=== PATIENT | male | born 1940 | race Caucasian/White ===

== ENCOUNTER 2016-12-24 19:07 | Inpatient (IN) | payer MEDICARE ==
[2016-12-24] MEDS ORDERED: Ondansetron INJ* 2 MG/ML VIAL IV ONE (20:19)
[2016-12-24] MEDS ORDERED: NS 0.9% 1000 ML* 1,000 ML IV ONE (20:19)
[2016-12-24] MEDS ORDERED: Morphine INJ* 4 MG/ML 1 ML SYRINGE IV ONE (20:19)
[2016-12-24] MEDS ORDERED: Albuterol/Ipratropium NEB.SOL* Albuterol 2.5 MG/Ipratropium 0.5 MG 3 ML INH ONE (20:22)
[2016-12-24 20:41] LABS: Hematocrit 50 % (42-52); Hemoglobin 16.9 g/dl (14.0-18.0); Mean Corpuscular HGB Conc 34 g/dl (31-36); Mean Corpuscular Hemoglobin 32 pg (27-31); Mean Corpuscular Volume 95 fL (80-94); Mean Platelet Volume 8 um3 (7.4-10.4); Red Blood Count 5.29 10^6/ul (4.0-5.4); Red Cell Distribution Width 14 % (10.5-15); White Blood Count 13.1 10^3/ul (3.5-10.8)
[2016-12-24 20:43] LABS: Comments Flag Yes
[2016-12-24 20:44] LABS: Add Diff/Slide Review? Slide Review Added
[2016-12-24] MEDS ORDERED: Morphine INJ* 2 MG/ML 1 ML SYRINGE ONE (20:45)
[2016-12-24 20:58] LABS: Albumin 4.1 g/dL (3.2-5.2); BUN/Creatinine Ratio 18.3 (8-20); C Reactive Protein 19.42 mg/L (< 5.00); Calcium 9.5 mg/dL (8.6-10.3); EGFR African American 75.7 (>60); EGFR Non-African American 58.9 (>60); Globulin 3.3 g/dL (2-4); Total Bilirubin 0.8 mg/dL (0.2-1.0); Total Protein 7.4 g/dL (6.4-8.9)
--- NOTE | 2016-12-24 21:12 | RAD ---
Indication: Abdominal pain. Single frontal view of the chest performed at 2026 hours was reviewed. Comparison is made with previous exam dated August 04, 2015. No mediastinal shift is noted. Heart is of normal size and configuration. Lung randall appear clear. IMPRESSION: NO ACTIVE CARDIOPULMONARY DISEASE IS NOTED.
[2016-12-24] MEDS ORDERED: Iodixanol* (CONTRAST) 320 MG/ML 100 ML SDV IV ONE (21:25)
[2016-12-24 21:57] LABS: Troponin I 0.01 ng/mL (<0.04)
--- NOTE | 2016-12-24 22:00 | RAD ---
Indication: Left lower quadrant pain. Contrast: Administered 100.1 ml of VISAPAQUE 320 mg/ml CT of the abdomen and pelvis was performed after IV contrast administration. Coronal and sagittal reconstructed images were obtained. Coronal and sagittal reconstructed images were obtained. The lung bases demonstrate no pleural fluid, nodules or masses. Heart is of normal size without evidence of pericardial effusion. Liver is normal in size. No focal lesions or intrahepatic ductal dilatation is noted. The anterior medial segment of the left lobe of liver demonstrates focal hypodensity which may represent focal fat. The gallbladder demonstrates no calcified gallstones. No pericholecystic fluid or wall thickening is identified. The pancreas demonstrates no mass or pancreatic duct dilatation. The common duct is not dilated. The spleen is normal in size. The adrenal glands demonstrates left adrenal nodule measuring 12 mm. This is unchanged from previous exam. The kidneys demonstrate symmetric nephrograms. Cortical cysts are noted in the left kidney within the upper pole measuring up to 5.7 cm. Atherosclerotic aorta is noted. Ectasia of the abdominal aorta is noted which is unchanged from previous exam of August 25, 2016 measuring up to 3.1 cm. There are dilated loops of small bowel especially in the left upper quadrant. There appears to be a hernia in the left anterior abdominal wall lateral to the rectus muscle. There is a zone of transition and this anterior abdominal wall hernia appears to be the point of transition. The colon is filled with stool. CT of the pelvis demonstrates prostatectomy. Urinary bladder is unremarkable. Trace amount of free fluid is noted in the cul-de-sac. IMPRESSION: THERE IS SMALL BOWEL OBSTRUCTION WITH A LEFT ANTERIOR ABDOMINAL WALL HERNIA WHICH APPEARS TO BE LATERAL TO THE RECTUS MUSCLE. THIS APPEARS TO BE THE POINT OF TRANSITION OF THE SMALL BOWEL OBSTRUCTION. PATIENT IS STATUS POST PROSTATECTOMY. ADRENAL NODULES ARE STABLE SINCE PRIOR EXAM. LEFT RENAL CYSTS ARE NOTED.
--- NOTE | 2016-12-24 23:35 | ED ---
Ankit Cantu Rebecca, scribed for Angeles Wintersuel on 12/24/16 at 2001 . Abdominal Pain/Male - HPI Summary HPI Summary: Pt is a 76 y/o M BIBA who presents to ED c/o abd pain. Pain has been intermittent for the last 2 days and is located in the bilateral lower abdomen. Pain is currently severe, ranked 8/10. Additionally c/o N/V, dizziness (2 weeks ) and recent hypotension (103/50). Reports that his emesis appears black. Denies melena, hematuria. Is not passing gas. Does not use O2 at home. PMHx MT and kidney stones. PSHx L partial nephrectomy to remove a tumor 6 years ago. Family reports that he began Livalo in July and that once a month since starting it he gets ill with abdominal cramping and vomiting for 2-3 days but current sx are worse. - History of Current Complaint Chief Complaint: EDAbdPain Stated Complaint: ABD PAIN Time Seen by Provider: 12/24/16 19:49 Hx Obtained From: Patient Onset/Duration: Still Present Severity Currently: Severe Pain Intensity: 8 Pain Scale Used: 0-10 Numeric Location: Discrete At: RLQ, Discrete At: LLQ Associated Signs And Symptoms: Positive: Nausea, Vomiting - Allergies/Home Medications Allergies/Adverse Reactions: Allergies Allergy/AdvReac Type Severity Reaction Status Date / Time Penicillins Allergy Difficulty Verified 12/24/16 20:02 Breathing Home Medications: Home Medications Pitavastatin Calcium [Livalo] 2 mg PO DAILY 12/24/16 [History Confirmed 12/24/16 ] Ticagrelor* [Brilinta 90 MG*] 60 mg PO Q12H 12/24/16 [History Confirmed 12/24/16 ] PMH/Surg Hx/FS Hx/Imm Hx Cardiovascular History: Reports: Hx Myocardial Infarction History: Reports: Hx Kidney Stones, Other Problems/Disorders - Prostate CA ; L renal tumor Sensory History: Reports: Hx Hearing Problem - Cancer History Cancer Type, Location and Year: L kidney. prostate Ca - Surgical History Surgery Procedure, Year, and Place: Bilateral knees. L partial nephrectomy ( 2010) - Immunization History Date of Tetanus Vaccine: Unk Date of Influenza Vaccine: Fall 2014 Infectious Disease History: No Infectious Disease History: Denies: Traveled Outside the [place] in Last 30 Days - Family History Known Family History: Positive: Other - Colon CA, prostate CA - Social History Alcohol Use: None Substance Use Type: Reports: None Hx Tobacco Use: Yes Smoking Status (MU): Heavy Every Day Tobacco Smoker Type: Cigarettes Review of Systems Positive: Other - Hypotension Positive: Abdominal Pain - lower abdominal, Vomiting - black, Nausea Positive: other - NEGATIVE: melena. Negative: hematuria Neurological: Other - Dizziness All Other Systems Reviewed And Are Negative: Yes Physical Exam - Summary Physical Exam Summary: Appearance: Well appearing, no pain distress Skin: warm, dry, reflects adequate perfusion Head/face: normal Eyes: EOMI, [place] ENT: normal Neck: supple, nontender Respiratory: bilateral wheeze, breath sounds present Cardiovascular: RRR, pulses symmetrical Abdomen: diffuse tenderness, soft, has a scar on the abdomen Bowel: present Musculoskeletal: normal, strength/ROM intact Neuro: normal, sensory motor intact, A&Ox3 Triage Information Reviewed: Yes Vital Signs On Initial Exam: Initial Vitals Temp Pulse Resp BP Pulse Ox 98.7 F 72 16 132/70 98 12/24/16 19:25 12/24/16 19:25 12/24/16 19:25 12/24/16 19:25 12/24/16 19:25 Vital Signs Reviewed: Yes - Leanne Coma Scale Coma Scale Total: 15 Diagnostics - Vital Signs Vital Signs Temp Pulse Resp BP Pulse Ox 12/24/16 19:36 98.7 F 72 16 132/70 98 12/24/16 19:25 98.7 F 72 16 132/70 98 - Laboratory Result Diagrams: 12/24/16 19:30 12/24/16 19:30 Lab Statement: Any lab studies that have been ordered have been reviewed, and results considered in the medical decision making process. - Radiology CXR Xray Interpretation: No Acute Changes - NO ACTIVE CARDIOPULMONARY DISEASE IS NOTED. ED physician reviewed this radiology report and agrees. Radiology Interpretation Completed By: Radiologist - CT CT Abd/Pel CT Interpretation: Positive (See Comments) - THERE IS SMALL BOWEL OBSTRUCTION WITH A LEFT ANTERIOR ABDOMINAL WALL HERNIA WHICH APPEARS TO BE LATERAL TO THE RECTUS MUSCLE. THIS APPEARS TO BE THE POINT OF TRANSITION OF THE SMALL BOWEL OBSTRUCTION. PATIENT IS STATUS POST PROSTATECTOMY. ADRENAL NODULES ARE STABLE SINCE PRIOR EXAM. LEFT RENAL CYSTS ARE NOTED. ED physician reviewed this radiology report and agrees. CT Interpretation Completed By: Radiologist - EKG 2029 Cardiac Rate: NL - 75 bpm EKG Rhythm: Sinus Rhythm EKG Interpretation: RBBB Re-Evaluation - Re-Evaluation First Eval Re-Evaluation Time: 22:25 Comment: Discussed results and plan to admit. Abdominal Pain Fem Course/Dx - Course Assessment/Plan: Pt is a 76 y/o M BIBA who presents to ED c/o intermittent lower abd pain for the last 2 days. Pain is currently severe, ranked 8/10. Additionally c/o N/V, dizziness (2 weeks) and recent hypotension (103/50). Reports that his emesis appears black. Denies melena, hematuria. Is not passing gas. Does not use O2 at home. PMHx MT and kidney stones. PSHx L partial nephrectomy to remove a tumor 6 years ago. Family reports that he began Livalo in July and that once a month since starting it he gets ill with abdominal cramping and vomiting for 2-3 days but current sx are worse. CT Abd/Pel reveals "THERE IS SMALL BOWEL OBSTRUCTION WITH A LEFT ANTERIOR ABDOMINAL WALL HERNIA. WHICH APPEARS TO BE LATERAL TO THE RECTUS MUSCLE. THIS APPEARS TO BE THE POINT OF. TRANSITION OF THE SMALL BOWEL OBSTRUCTION. PATIENT IS STATUS POST PROSTATECTOMY. ADRENAL NODULES ARE STABLE SINCE PRIOR EXAM. LEFT RENAL CYSTS ARE NOTED." CXR reveals no acute findings. EKG is sinus rhythm with RBBB. Blood work was done. Troponin of 0.01, CRP of 19.42, WBC of 13.1. In the ED course, pt received morphine, zofran, duoneb and fluids. Discussed care of pt with Dr. Jc who accepts pt for admission. Pt will be admitted with Dx of SBO. He understands and agrees. Elevated BP noted and advised to f/u with PCP. - Diagnoses Provider Diagnoses: Small bowel obstruction Discharge - Discharge Plan Condition: Stable Disposition: ADMITTED TO [facility] Referrals: Eugene Hardy MD [Primary Care Provider] - The documentation as recorded by the Ankit blanton Rebecca accurately reflects the service I personally performed and the decisions made by , Zia Winters.
[2016-12-24] MEDS ORDERED: NS 0.9% 1000 ML* 1,000 ML IV SCH (23:45)
[2016-12-24] MEDS ORDERED: Ticagrelor* 90 MG TAB PO SCH (23:45)
[2016-12-24] MEDS ORDERED: Nitroglycerin TAB 0.4 MG* 0.4 MG TAB SL PRN (23:46)
[2016-12-24] MEDS ORDERED: Ondansetron INJ* 2 MG/ML VIAL IV PRN (23:47)
[2016-12-24] MEDS ORDERED: Morphine INJ* 2 MG/ML 1 ML SYRINGE IV PRN (23:47)
[2016-12-25 00:01] LABS: Urine Bacteria 1+ (Absent); Urine Bilirubin Negative (Negative); Urine Glucose Negative (Negative); Urine Nitrite Positive (Negative)
[2016-12-25] MEDS ORDERED: HYDROmorphone* 1 MG/ML 1 ML SYR IV SLOW PU PRN ×2 (00:06→01:00)
[2016-12-25] MEDS ORDERED: HYDROmorphone* 1 MG/ML 1 ML SYR ONE ×2 (00:36→15:48)
[2016-12-25] MEDS ORDERED: TICAGRELOR 60 MG PO SCH (02:10)
--- NOTE | 2016-12-25 03:22 | HP ---
CC: Dr. Hardy * HISTORY AND PHYSICAL: DATE OF ADMISSION: 12/24/16 PRIMARY CARE PHYSICIAN: Dr. Hardy. CHIEF COMPLAINT: Abdominal pain. HISTORY OF PRESENT ILLNESS: The patient is a 76-year-old gentleman who says Thursday, he started feeling significant abdominal pain and nausea, and he could not eat supper or keep anything down. According to his , this actually started on Thursday, but was not quite as bad. Furthermore, the informs me that he had a similar episode just 3 weeks ago, but resolved on its own. At its worst, the pain was 9/10 in severity. He has not been able to keep anything down since Thursday. He also was unable to take any of his cardiac medications today. In the ED, the patient was evaluated and had a CT of the abdomen and pelvis, which did show a small bowel obstruction. PAST MEDICAL HISTORY: Significant for coronary artery disease, status post inferior wall OR with a drug-eluting stent placed in the proximal RCA last year. Prostate cancer, bilateral knee replacement, status post partial nephrectomy on the left side, anxiety, tobacco abuse. CURRENT MEDICATIONS: Include: 1. Livalo 2 mg daily. 2. Flonase 2 sprays both nares daily. 3. Aspirin 81 mg daily. 4. Nitroglycerin 0.4 mg sublingual q.5 minutes as needed. 5. Brilinta 60 mg every 12 hours. ALLERGIES: He has an allergy/adverse reaction to PENICILLINS. FAMILY HISTORY: Reviewed, noncontributory. SOCIAL HISTORY: Smokes a pack a day, will need a nicotine patch as per the patient. Occasional beer. No recreational drugs. 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 He is . His , Shauna Ryan, is his health proxy. He has 3 children. REVIEW OF SYSTEMS: A 14-point review of systems was completed with the patient. All pertinent positives and negative are in the history of present illness, otherwise it is negative. PHYSICAL EXAMINATION GENERAL: A pleasant gentleman, lying in bed, in no acute distress. VITAL SIGNS: Blood pressure 124/70, respiratory rate 19 breaths per minute, heart rate 88 beats per minute, temperature is 98.7 degrees. HEENT: Normocephalic and atraumatic. Pupils are equal, round and reactive to light. Moist mucous membranes. NECK: Supple. No JVD, bruits, palpable thyroid or lymphadenopathy. CHEST: Clear to auscultation and percussion bilaterally. CARDIOVASCULAR: S1, S2 appreciated. Regular rate and rhythm. No murmurs, gallops, or rubs. ABDOMEN: Distended, positive bowel sounds in all 4 quadrants. It is soft, not firm. No rebound, no guarding, no rigidity. EXTREMITIES: No cyanosis, clubbing, or edema. +2 peripheral pulses bilaterally. NEUROLOGIC: Alert and oriented x3. Moves all extremities. SKIN: No rashes or abnormalities. LABORATORY DATA: White count 13.1, hemoglobin 16.9, hematocrit 50, platelets 297. Sodium is 132, potassium 4.0, chloride 101, CO2 23, BUN 22, creatinine 1.20 , glucose 116. INR 0.98. Chest x-ray is interpreted by Radiology shows no active cardiopulmonary diseases noted. Abdominal/pelvic CT as interpreted by Radiology shows there is small bowel obstruction into the left anterior abdominal wall hernia, which appears to be lateral to the rectus muscle. This appears to be point of transition of the small bowel obstruction. The patient is status post prostatectomy. Adrenal nodules are stable since prior exam. Left renal cysts are noted. EKG shows normal sinus rhythm at 75 beats per minute, right bundle branch block pattern. Normal axis. Flipped Ts in V2. No acute ST-T wave changes. ASSESSMENT AND PLAN: 1. Small bowel obstruction: Make patient NPO. Normal saline at 100 cc an hour. NG tube placed. Dilaudid p.r.n. for pain, Zofran p.r.n. for nausea. Surgery to see in a.m. 2. Coronary artery disease: We will attempt to give patient NG tube. However, he may not be able to keep down with his small bowel obstruction. 3. FEN: NPO and normal saline as noted. 4. DVT prophylaxis: Heparin subcu. 5. The patient is a full code. TIME SEEN: Over 75 minutes were spent on this H and P, more than 40 minutes of which was spent in direct [id number] contact with the patient in evaluation, physical exam, counseling, and coordination of care. [id number]/CPS #: [id number] MTDD
[2016-12-25] MEDS: HYDROmorphone* 1 MG/ML 1 ML SYR IV SLOW PU PRN ×6 (05:41→23:52)
[2016-12-25] MEDS: Nicotine Patch Removal NOTE FOLLOW UP SCH (05:47)
[2016-12-25] MEDS ORDERED: Heparin VIAL(*) 5000 UNITS/ML VIAL (FIVE THOUSAND) SUBCUT SCH (06:00)
[2016-12-25] MEDS ORDERED: PITAVASTATIN 2 MG PO SCH (09:00)
[2016-12-25] MEDS ORDERED: NS 0.9% 1000 ML* 1,000 ML IV ONE (09:26)
--- NOTE | 2016-12-25 09:34 | PN ---
Subjective Date of Service: 12/25/16 Interval History: Patient seen this morning, continues to have abdominal pain. Thinks last time he kept down Brilinta may have been 2-3 days ago. 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 No exertional chest pain. Family History: Unchanged from Admission Social History: Unchanged from Admission Past Medical History: Unchanged from Admission Objective Active Medications: Aspirin (Aspirin Low Dose Tab*) 81 mg PO DAILY JAYNA Fluticasone Propionate (Flonase Nasal [place] 50mcg*) 2 spray BOTH NARES DAILY JAYNA Heparin Sodium (Porcine) (Heparin Vial(*)) 5,000 units SUBCUT Q8HR JAYNA Hydromorphone HCl (Dilaudid Iv*) 1 mg IV SLOW PU Q4H PRN Sodium Chloride (Ns 0.9% 1000 Ml*) 1,000 mls @ 100 mls/hr IV PER RATE JAYNA Nicotine (Nicotine Patch 21 Mg/24 Hr*) 1 patch TRANSDERM DAILY JAYNA Nitroglycerin (Nitroglycerin Tab 0.4 Mg*) 0.4 mg SL Q5M PRN Pto:Ticagrelor 60mg (Tabs) 1 dose PO 0900,2100 JAYNA Ondansetron HCl (Zofran Inj*) 4 mg IV Q4H PRN Pharmacy Profile Note (Nicotine Patch Removal Note*) 1 note FOLLOW UP 0600 JAYNA Pitavastatin (Livalo (Nf)) 2 mg PO 2100 JAYNA Vital Signs 12/25/16 12/25/16 12/25/16 00:40 01:31 01:40 Temperature 98.0 F Pulse Rate 79 Respiratory 16 20 20 Rate Blood Pressure 112/62 (mmHg) O2 Sat by Pulse 95 Oximetry 12/25/16 12/25/16 12/25/16 01:41 02:46 03:37 Temperature 98.0 F 98.1 F Pulse Rate 79 91 Respiratory 20 20 16 Rate Blood Pressure 112/62 114/64 (mmHg) O2 Sat by Pulse 95 96 Oximetry 12/25/16 12/25/16 12/25/16 05:41 07:00 07:59 Temperature 98.0 F Pulse Rate 78 Respiratory 16 18 21 Rate Blood Pressure 106/65 (mmHg) O2 Sat by Pulse 93 Oximetry Oxygen Devices in Use Now: None Appearance: Elderly, M, laying in bed in NAD Eyes: No Scleral Icterus Ears/Nose/Mouth/Throat: - - Dry MM, NGT in place Neck: NL Appearance and Movements; NL JVP Respiratory: Symmetrical Chest Expansion and Respiratory Effort, Clear to Auscultation Cardiovascular: NL Sounds; No Murmurs; No JVD, RRR Abdominal: - - Soft, distended, L sided hernia TTP, BS hypoactive/tinkling Lymphatic: No Cervical Adenopathy Extremities: No Edema Skin: No Rash or Ulcers Neurological: Alert and Oriented x 3 Lines/Tubes/Other Access: Clean, Dry and Intact Naso-enteral Tube Result Diagrams: 12/24/16 19:30 12/24/16 19:30 Assess/Plan/Problems-Billing Assessment: Incarcerated hernia with resultant SBO in a 76 yo M with hx of CAD s/p CAROLEE 2015 on ASA/Brilinta, prostate cancer, s/p partial left nephrectomy - Patient Problems (1) Incarcerated hernia Current Visit: Yes Comment: SBO. Appreciate Surgery assistance. Dr. Griffiths would like to take the patient to the OR today. RCRI score of 2 (high-risk surgery, hx of MA), placing patient at 6.6% chance of major cardiac event. Patient seems relatively stable from a CV standpoint, do not think he requires any further work-up/testing prior to proceeding with urgent surgery. Will obtain recent progress note and echo report from Dr. Foss office. IVF, analgesia. (2) CAD (coronary artery disease) Current Visit: Yes Comment: s/p CAROLEE 07/2015. Continue ASA post-op, will hold Brilinta for now. Will discuss with Dr. Foss whether he would like patient to resume Brilitna post-op as it has been >1 year since stent placement. (3) DVT prophylaxis Current Visit: Yes Comment: SCDs
[2016-12-25] MEDS ORDERED: NS 0.9% 1000 ML* 1,000 ML IV SCH (09:42)
[2016-12-25] MEDS: Fluticasone NASAL SPRAY 50MCG* 16 gm SPRAY BTL BOTH NARES SCH (10:05)
[2016-12-25] MEDS: Nicotine PATCH 21 MG/24 HR* PATCH TRANSDERM SCH (10:08)
[2016-12-25] MEDS: Aspirin Low Dose CHEW TAB* 81 MG PO SCH (10:24)
[2016-12-25] MEDS: TICAGRELOR 60 MG PO SCH ×2 (10:24→21:44)
--- NOTE | 2016-12-25 10:41 | CONS ---
CC: Dr. Eugene Hardy; Dr. Nadine Foss * DATE OF CONSULT: 12/25/2016. ATTENDING SURGEON: Dr. Lester Griffiths (BOLA Rodriguez dictating). CHIEF COMPLAINT: Abdominal pain, nausea and vomiting. HISTORY OF PRESENT ILLNESS: This is a 76-year-old gentleman with a history of coronary artery disease who presented to the ED after onset of abdominal pain with associated nausea and vomiting which began on 12/22/2016. He had a similar episode that resolved on its own about three weeks ago. This episode did not improve with time and he presented to the ED. He has not been able to keep anything down. He also has noted a bulge in the left lower quadrant. Pain has been as high as 9/10. He has had no bowel movement since Thursday. Emesis has appeared dark, but he denies bright red blood or coffee ground material. He has not had any suspect food ingestion. He has not had any other prior similar episodes, other than three weeks ago. He did have surgery in that area- a laparoscopic partial nephrectomy for what sounds like a renal cell carcinoma was converted to an open surgery for control of bleeding. The bulge is at the inferior portion of that scar. He has had other abdominal surgeries as noted below. PAST MEDICAL HISTORY: Coronary artery disease (status post AR with PEARL MAKER with stent placement in [address] Foss). He states that he was seen by Dr. Foss earlier this year and that an echocardiogram was done at that time and that he was given a good report. He is also treated for hyperlipidemia. He is a long time smoker. He also has a history of allergic rhinitis. History of prostate cancer (see surgery below). Renal cell cancer as noted above. PAST SURGICAL HISTORY: Left partial nephrectomy as noted above 2010. Open radical prostatectomy 1994. Bilateral inguinal hernias remotely. Bilateral total knee arthroplasty 2015. RCA stent 2015. He also had a vein repair of an arterial injury to the right hand remotely. CURRENT MEDICATIONS: 1. Livalo 2 mg once daily. 2. Brilinta 60 mg b.i.d. (His last dose of any of these medications that he believes he kept down was on Thursday.) 3. Aspirin 81 mg once daily. 4. Flonase two sprays each nostril once daily. 5. Fish oil supplement daily. 6. Nitroglycerin sublingual prn (has never used). DRUG ALLERGIES: PENICILLIN (SWELLING), ATORVASTATIN (MYALGIAS). FAMILY HISTORY: Negative for anesthesia problems, bleeding or clotting abnormalities. SOCIAL HISTORY: The patient is . He has three children. 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 He is an ongoing smoker of one pack per day. He drinks approximately one drink per week. He denies other drug use. REVIEW OF SYSTEMS: General: No recent constitutional symptoms or acute illnesses, other than described in the HPI. HEENT: He has full dentures. He complains of dry mouth related to the presence illness. Cardiovascular: No chest pain, palpations. See also above. Respiratory: He is able to climb one regular flight of stairs without stopping, otherwise no acute change in his respiratory status. GI: As above. He has never had a colonoscopy. : Status post radical prostatectomy for prostate cancer with no evidence of disease at present. He states that he had reconstruction as part of that surgery. Endocrine: No diabetes or thyroid dysfunction. Musculoskeletal: As above. No additions. PHYSICAL EXAM: General: Well-nourished, elderly male in no acute distress. NG tube present. Skin: Warm and dry. No suspicious rashes or lesions. Vital Signs: Height 5'8", weight 200 pounds. Temperature 98, blood pressure 106/65, pulse 78, respirations 21, room air saturation 93 percent. HEENT: Pupils are equal, round, and reactive. EOM's intact. No conjunctival pallor. Oropharynx : Mucus membranes dry. He has full upper denture in place. No other intraoral lesions. Neck: No lymphadenopathy, thyromegaly, or masses. Heart: Regular rate and rhythm. No murmur appreciated. Lungs: Clear to auscultation. No rales or wheezes. Abdomen: Distended. Multiple well-healed surgical incisions including left-sided diagonal scar from prior partial nephrectomy. Lower midline scar. Bilateral inguinal scars and laparoscopic port site scars. Abdomen: Distended. Somewhat tympanitic. Bowel sounds are present. Abdomen is soft, but with tenderness in the left lower quadrant where there is a palpable mass consistent with known ventral hernia by CT. This area is moderately tender. It does not appear to be easily reducible. No other masses appreciated. No organomegaly. Inguinal areas are without tenderness or masses. Back: No spinous process or CVA tenderness. Extremities: No edema. Neurological: Grossly intact. DIAGNOSTIC STUDIES/LAB DATA: White blood cell count 13,100, hemoglobin 16.9, creatinine 1.2, glucose 116, alkaline phosphatase 111, CRP 19. Lactic acid, liver function test, and lipase are all normal. BNP was normal at 20. Urinalysis was significant for a specific gravity of 1.060, 1+ protein, 2+ blood and positive nitrates. CT of the abdomen and pelvis has a number of findings (see separate report). Specifically, there is what appears to be a small bowel obstruction with a transition zone in the left lower quadrant ventral hernia. IMPRESSION: Small bowel obstruction related to incarcerated ventral hernia. PLAN: The patient will be reviewed by the Medical team for optimization and will likely need OR later today for reduction and repair of this incarcerated left lower quadrant ventral hernia. BOLA RODRIGUEZ [id number]/[facility] #: [id number] INDER
[2016-12-25] MEDS ORDERED: Levofloxacin 750 MG IVPREMIX(* 750 MG/150 ML BAG ONE (12:55)
[2016-12-25] MEDS ORDERED: Lidocaine 1% INJ* 10 MG/ML 30 ML SDV ONE (12:56)
[2016-12-25] MEDS ORDERED: Succinylcholine* 20 MG/ML 10 ML VIAL ONE ×2 (12:57→14:37)
[2016-12-25] MEDS ORDERED: metroNIDAZOLE IV 500 MG/100ML* 500 MG/100 ML BAG IVPB ONE (13:00)
[2016-12-25] MEDS ORDERED: KETAMINE HCL* 50 MG/ML 10 ML VIAL ONE (13:01)
[2016-12-25] MEDS ORDERED: Phenylephrine IV* 40 MCG/ML 10 ML SYRINGE ONE (13:35)
[2016-12-25] MEDS ORDERED: Ondansetron INJ* 2 MG/ML VIAL ONE (13:47)
[2016-12-25] MEDS ORDERED: Dexamethasone IV* 4 MG/ML 1 ML (4 MG) ONE (13:47)
[2016-12-25] MEDS ORDERED: Glycopyrrolate IV* 0.2 MG/ML 1 ML VIAL ONE (14:26)
[2016-12-25] MEDS ORDERED: Neostigmine Methylsulfate* 2 MG/2 ML SYRINGE ONE (14:26)
[2016-12-25] MEDS ORDERED: Propofol* 10 MG/ML 20 ML BTL IV PUSH ONE (14:37)
[2016-12-25] MEDS ORDERED: Rocuronium* 10 MG/ML VIAL ONE (14:37)
[2016-12-25] MEDS ORDERED: fentaNYL* 50 MCG/ML 2 ML VIAL (100 MCG VIAL) ONE ×3 (15:15→16:25)
[2016-12-25] MEDS: fentaNYL* 50 MCG/ML 2 ML VIAL (100 MCG VIAL) IV PRN ×4 (15:50→16:33)
[2016-12-25] MEDS: HYDROmorphone* 1 MG/ML 1 ML SYR IV PRN ×5 (15:53→16:27)
[2016-12-25] MEDS: NS 0.9% 1000 ML* 1,000 ML IV SCH (17:41)
[2016-12-25] MEDS: PITAVASTATIN 2 MG PO SCH (21:44)
[2016-12-26] MEDS: NS 0.9% 1000 ML* 1,000 ML IV SCH ×3 (00:29→23:37)
[2016-12-26] MEDS: HYDROmorphone* 1 MG/ML 1 ML SYR IV SLOW PU PRN ×9 (02:02→21:29)
[2016-12-26] MEDS: diPHENhydraMINE IV* 50 MG/ML 1 ml VIAL (BENADRYL) IV PRN ×3 (02:57→18:01)
[2016-12-26] MEDS: Nicotine Patch Removal NOTE FOLLOW UP SCH (05:28)
--- NOTE | 2016-12-26 06:34 | OP ---
CC: Dr. Eugene Hardy * DATE OF OPERATION: 12/25/16 - ROOM #348 DATE OF : 40 SURGEON: Lester Griffiths MD TOOTH CUTTER SPUR: Verito Fang NP ANESTHESIOLOGIST: Dr. Barry Carbajal. ANESTHESIA: General anesthesia. PRE-OP DIAGNOSIS: Small bowel obstruction secondary to incarcerated incisional ventral hernia. POST-OP DIAGNOSIS: Small bowel obstruction secondary to incarcerated incisional ventral hernia. OPERATIVE PROCEDURE: Laparotomy, lysis of adhesions and repair of incisional ventral hernia with mesh. DESCRIPTION OF PROCEDURE: The patient was supine on the operating table. After adequate general anesthetic, compression stockings, Nilson Hugger warmer, and intravenous antibiotics, the abdomen was prepped with antiseptic, draped in a sterile fashion. Incision was created over the palpable incarcerated hernia. This is approximately an 8 cm incision. Dissection is carried down to the sac. As I am dissecting out the sac, the hernia actually reduces itself. The defect was about 3 to 4 cm across. Ultimately due to the adhesions underneath, I had to open up the hernia site to about 7 cm and extensive lysis of adhesions was carried out to free up the bowel until I was able to conclusively identify the site of the obstruction. I was able to deliver several centimeters of bowel both proximal and distal to the site of obstruction and this was all in good condition. There were no tears or injuries. The bowel was pink and viable and starting to flow through the area of the obstruction. The bowel was returned to the abdominal cavity and it was decided that a Ventrio Patch would be utilized. The fascia was very weak up under the previous incision, so it was decided to use a 5 x 8 inch Ventrio underlay Patch. The greater portion of this was placed superiorly to cover up the weakness from the previous incision. This was parachuted in with full thickness interrupted #1 Polysorb sutures. This covered the entire superior and lateral aspect of the patch. The patch was then tied up underneath and the helical tacker was used to tack it up into place. This created excellent positioning and security and it was then closed. The fascia over top also tacking it to the mesh using #1 Polysorb. A GARRET drain had been brought out through a stab wound through the layer of mesh and through the upper fascia and then out through the skin, so it drained both spaces. The adipose was reapproximated with 3-0 Polysorb and skin closed with latisha followed by a sterile dressing. He was awakened, extubated, and brought to Recovery in good condition. There were no complications. Drain is Tate- Nascimento. Sponge and instrument counts correct. Estimated blood loss is less than 10 mL [id number]/[facility] #: [id number] [facility]
[2016-12-26 06:49] LABS: Hematocrit 43 % (42-52); Hemoglobin 14.5 g/dl (14.0-18.0); Mean Corpuscular HGB Conc 34 g/dl (31-36); Mean Corpuscular Hemoglobin 32 pg (27-31); Mean Corpuscular Volume 96 fL (80-94); Mean Platelet Volume 8 um3 (7.4-10.4); Red Blood Count 4.49 10^6/ul (4.0-5.4); Red Cell Distribution Width 14 % (10.5-15); White Blood Count 8.4 10^3/ul (3.5-10.8)
[2016-12-26 06:50] LABS: Comments Flag Yes
[2016-12-26 07:02] LABS: Calcium 8.3 mg/dL (8.6-10.3); EGFR African American 93.4 (>60); EGFR Non-African American 72.6 (>60); Potassium 4.3 mmol/L (3.5-5.0)
[2016-12-26] MEDS: Aspirin Low Dose CHEW TAB* 81 MG PO SCH (09:54)
[2016-12-26] MEDS: Fluticasone NASAL SPRAY 50MCG* 16 gm SPRAY BTL BOTH NARES SCH (09:55)
[2016-12-26] MEDS: Ibuprofen TAB* 400 MG PO SCH ×2 (09:55→16:50)
[2016-12-26] MEDS: Nicotine PATCH 21 MG/24 HR* PATCH TRANSDERM SCH (09:56)
[2016-12-26] MEDS: TICAGRELOR 60 MG PO SCH ×2 (09:56→21:45)
[2016-12-26] MEDS ORDERED: PROCHLORPERAZINE INJ 5 MG/ML 2 ML VIAL ONE (14:08)
[2016-12-26] MEDS: PROCHLORPERAZINE INJ 5 MG/ML 2 ML VIAL IV PRN ×2 (14:13→20:25)
--- NOTE | 2016-12-26 15:58 | PN ---
Subjective Date of Service: 12/26/16 Interval History: Patient seen this afternoon. Reports significant nausea, has been unable to take much PO. Pain fairly well controlled. Family History: Unchanged from Admission Social History: Unchanged from Admission Past Medical History: Unchanged from Admission Objective Active Medications: Aspirin (Aspirin Low Dose Tab*) 81 mg PO DAILY JAYNA Diphenhydramine HCl (Benadryl Iv*) 25 mg IV Q6H PRN Fluticasone Propionate (Flonase Nasal [place] 50mcg*) 2 spray BOTH NARES DAILY JAYNA Hydromorphone HCl (Dilaudid Iv*) 1 mg IV SLOW PU Q2H PRN Sodium Chloride (Ns 0.9% 1000 Ml*) 1,000 mls @ 100 mls/hr IV PER RATE JAYNA Ibuprofen (Motrin Tab*) 400 mg PO Q8H JAYNA Nicotine (Nicotine Patch 21 Mg/24 Hr*) 1 patch TRANSDERM DAILY JAYNA Nitroglycerin (Nitroglycerin Tab 0.4 Mg*) 0.4 mg SL Q5M PRN Pto:Ticagrelor 60mg (Tabs) 1 dose PO 0900,2100 JAYNA Ondansetron HCl (Zofran Inj*) 4 mg IV Q4H PRN Pharmacy Profile Note (Nicotine Patch Removal Note*) 1 note FOLLOW UP 0600 JAYNA Pitavastatin (Livalo (Nf)) 2 mg PO 2100 JAYNA Prochlorperazine Edisylate (Compazine Inj*) 5 mg IV Q6H PRN Vital Signs 12/25/16 12/25/16 12/25/16 15:53 15:55 16:00 Temperature 98.1 F Pulse Rate 94 Respiratory 20 20 15 Rate Blood Pressure 134/67 (mmHg) O2 Sat by Pulse 94 Oximetry 12/25/16 12/26/16 12/26/16 23:52 00:11 00:52 Temperature 98.7 F Pulse Rate 95 Respiratory 20 16 16 Rate Blood Pressure 111/55 (mmHg) O2 Sat by Pulse 93 Oximetry 12/26/16 12/26/16 14:15 14:42 Temperature 99.0 F Pulse Rate 96 Respiratory 17 16 Rate Blood Pressure 112/70 (mmHg) O2 Sat by Pulse 91 Oximetry Oxygen Devices in Use Now: None Appearance: Elderly, M, laying in bed, appears nauseous Eyes: No Scleral Icterus Ears/Nose/Mouth/Throat: - - Dry MM Neck: NL Appearance and Movements; NL JVP Respiratory: Symmetrical Chest Expansion and Respiratory Effort, Clear to Auscultation Cardiovascular: NL Sounds; No Murmurs; No JVD, RRR Abdominal: - - Soft, abd binder in place, GARRET drain with red serosanguinous fluid Lymphatic: No Cervical Adenopathy Extremities: No Edema Skin: No Rash or Ulcers Neurological: Alert and Oriented x 3 Result Diagrams: 12/26/16 06:38 12/26/16 06:38 Microbiology and Other Data: Microbiology 12/25/16 06:37 Aerobic Blood Culture - Preliminary Blood Venous No Growth Day 1 Anaerobic Blood Culture - Preliminary No Growth Day 1 Assess/Plan/Problems-Billing Assessment: Incarcerated hernia with resultant SBO in a 76 yo M with hx of CAD s/p CAROLEE 2015 on ASA/Brilinta, prostate cancer, s/p partial left nephrectomy - Patient Problems (1) Incarcerated hernia Current Visit: Yes Comment: SBO. Appreciate Surgery assistance s/p laparotomy , KARMEN and hernia repair. Continue IVF, analgesia. Antiemetic. Clears. (2) CAD (coronary artery disease) Current Visit: Yes Comment: s/p CAROLEE 07/2015. Continue ASA and Brilinta. Dr. Foss would like patient to continue DAPT. (3) Bacteriuria Current Visit: Yes Comment: Asymptomatic. No symptoms of dysuria or UTI. Hold on ABx. (4) DVT prophylaxis Current Visit: Yes Comment: SCDs
[2016-12-26] MEDS: PITAVASTATIN 2 MG PO SCH (21:44)
[2016-12-27] MEDS: Ibuprofen TAB* 400 MG PO SCH (03:47)
[2016-12-27] MEDS: Nicotine Patch Removal NOTE FOLLOW UP SCH ×2 (06:08→21:52)
[2016-12-27] MEDS: HYDROmorphone* 1 MG/ML 1 ML SYR IV SLOW PU PRN ×2 (06:20→09:39)
[2016-12-27 06:41] LABS: BUN/Creatinine Ratio 24.8 (8-20); EGFR African American 92.4 (>60); EGFR Non-African American 71.8 (>60); Potassium 3.8 mmol/L (3.5-5.0)
[2016-12-27] MEDS: Aspirin Low Dose CHEW TAB* 81 MG PO SCH (08:33)
[2016-12-27] MEDS: Nicotine PATCH 21 MG/24 HR* PATCH TRANSDERM SCH (08:34)
[2016-12-27] MEDS: TICAGRELOR 60 MG PO SCH ×2 (08:34→21:43)
[2016-12-27] MEDS: Fluticasone NASAL SPRAY 50MCG* 16 gm SPRAY BTL BOTH NARES SCH (08:34)
--- NOTE | 2016-12-27 11:53 | PN ---
Subjective Date of Service: 12/27/16 Interval History: Patient seen this morning. Reports improvement in nausea today, has been tolerating some clears. Maybe some minimal flatus, no BM. Pain tolerable. Family History: Unchanged from Admission Social History: Unchanged from Admission Past Medical History: Unchanged from Admission Objective Active Medications: Aspirin (Aspirin Low Dose Tab*) 81 mg PO DAILY JAYNA Diphenhydramine HCl (Benadryl Iv*) 25 mg IV Q6H PRN Fluticasone Propionate (Flonase Nasal [place] 50mcg*) 2 spray BOTH NARES DAILY JAYNA Hydromorphone HCl (Dilaudid Iv*) 1 mg IV SLOW PU Q2H PRN Sodium Chloride (Ns 0.9% 1000 Ml*) 1,000 mls @ 100 mls/hr IV PER RATE JAYNA Nicotine (Nicotine Patch 21 Mg/24 Hr*) 1 patch TRANSDERM DAILY JAYNA Nitroglycerin (Nitroglycerin Tab 0.4 Mg*) 0.4 mg SL Q5M PRN Pto:Ticagrelor 60mg (Tabs) 1 dose PO 0900,2100 JAYNA Ondansetron HCl (Zofran Inj*) 4 mg IV Q4H PRN Oxycodone/Acetaminophen (Percocet 5/325 Tab*) 1 tab PO Q4H PRN Pharmacy Profile Note (Nicotine Patch Removal Note*) 1 note FOLLOW UP 0600 JAYNA Pitavastatin (Livalo (Nf)) 2 mg PO 2100 JAYNA Prochlorperazine Edisylate (Compazine Inj*) 5 mg IV Q6H PRN Vital Signs 12/26/16 12/26/16 12/26/16 14:42 15:15 16:15 Temperature 99.0 F Pulse Rate 96 Respiratory 16 16 17 Rate Blood Pressure 112/70 (mmHg) O2 Sat by Pulse 91 Oximetry 12/27/16 12/27/16 12/27/16 10:39 11:28 11:47 Temperature 97.6 F Pulse Rate 83 Respiratory 16 20 Rate Blood Pressure 118/65 (mmHg) O2 Sat by Pulse 93 93 Oximetry Oxygen Devices in Use Now: None Appearance: Elderly, M, laying in bed in NAD Eyes: No Scleral Icterus Ears/Nose/Mouth/Throat: Mucous Membranes Moist Neck: NL Appearance and Movements; NL JVP Respiratory: Symmetrical Chest Expansion and Respiratory Effort, Clear to Auscultation Cardiovascular: NL Sounds; No Murmurs; No JVD, RRR Abdominal: - - Soft, non-tender, mild distension, binder in place, GARRET drain with red serosang Extremities: No Edema Skin: No Rash or Ulcers Neurological: Alert and Oriented x 3 Result Diagrams: 12/26/16 06:38 12/27/16 06:02 Assess/Plan/Problems-Billing Assessment: Incarcerated hernia with resultant SBO in a 76 yo M with hx of CAD s/p CAROLEE 2015 on ASA/Brilinta, prostate cancer, s/p partial left nephrectomy - Patient Problems (1) Incarcerated hernia Current Visit: Yes Comment: SBO. Appreciate Surgery assistance s/p laparotomy , KARMEN and hernia repair. Continue IVF, analgesia. Antiemetic. Clears for now, advance as per Surgery. BCx likely contaminant. (2) CAD (coronary artery disease) Current Visit: Yes Comment: s/p CAROLEE 07/2015. Continue ASA and Brilinta. Dr. Foss would like patient to continue DAPT. (3) Bacteriuria Current Visit: Yes Comment: Asymptomatic. No symptoms of dysuria or UTI. Hold on ABx. (4) DVT prophylaxis Current Visit: Yes Comment: SCDs
[2016-12-27] MEDS: oxyCODONE/Acetamin 5/325 MG* TAB PO PRN (17:17)
[2016-12-27] MEDS: PITAVASTATIN 2 MG PO SCH (21:43)
[2016-12-28] MEDS: oxyCODONE/Acetamin 5/325 MG* TAB PO PRN ×4 (03:27→20:13)
[2016-12-28] MEDS: Nicotine Patch Removal NOTE FOLLOW UP SCH (05:19)
[2016-12-28] MEDS: Aspirin Low Dose CHEW TAB* 81 MG PO SCH (09:05)
[2016-12-28] MEDS: TICAGRELOR 60 MG PO SCH ×2 (09:05→20:13)
[2016-12-28] MEDS: Fluticasone NASAL SPRAY 50MCG* 16 gm SPRAY BTL BOTH NARES SCH (09:05)
[2016-12-28] MEDS: Nicotine PATCH 21 MG/24 HR* PATCH TRANSDERM SCH (09:06)
--- NOTE | 2016-12-28 17:11 | PN ---
Subjective Date of Service: 12/28/16 Interval History: Patient seen this afternoon. Reports feeling well. No nausea, tolerating full liquids. Not much pain. Hoping to go home tomorrow. Family History: Unchanged from Admission Social History: Unchanged from Admission Past Medical History: Unchanged from Admission Objective Active Medications: Aspirin (Aspirin Low Dose Tab*) 81 mg PO DAILY JAYNA Diphenhydramine HCl (Benadryl Iv*) 25 mg IV Q6H PRN Fluticasone Propionate (Flonase Nasal [place] 50mcg*) 2 spray BOTH NARES DAILY JAYNA Hydromorphone HCl (Dilaudid Iv*) 1 mg IV SLOW PU Q2H PRN Sodium Chloride (Ns 0.9% 1000 Ml*) 1,000 mls @ 100 mls/hr IV PER RATE JAYNA Nicotine (Nicotine Patch 21 Mg/24 Hr*) 1 patch TRANSDERM DAILY JAYNA Nitroglycerin (Nitroglycerin Tab 0.4 Mg*) 0.4 mg SL Q5M PRN Pto:Ticagrelor 60mg (Tabs) 1 dose PO 0900,2100 JAYNA Ondansetron HCl (Zofran Inj*) 4 mg IV Q4H PRN Oxycodone/Acetaminophen (Percocet 5/325 Tab*) 1 tab PO Q4H PRN Pharmacy Profile Note (Nicotine Patch Removal Note*) 1 note FOLLOW UP 0600 JAYNA Pitavastatin (Livalo (Nf)) 2 mg PO 2100 JAYNA Prochlorperazine Edisylate (Compazine Inj*) 5 mg IV Q6H PRN Vital Signs 12/27/16 12/27/16 12/27/16 17:17 19:09 19:17 Temperature Pulse Rate Respiratory 16 16 16 Rate Blood Pressure (mmHg) O2 Sat by Pulse Oximetry 12/27/16 12/27/16 12/27/16 19:29 19:30 23:29 Temperature 97.4 F 98.0 F Pulse Rate 90 92 89 Respiratory 16 18 Rate Blood Pressure 111/63 113/60 (mmHg) O2 Sat by Pulse 93 93 91 Oximetry 12/28/16 12/28/16 12/28/16 03:27 03:29 05:35 Temperature 98.8 F Pulse Rate 93 Respiratory 16 18 16 Rate Blood Pressure 137/61 (mmHg) O2 Sat by Pulse 90 Oximetry 12/28/16 12/28/16 12/28/16 07:19 09:04 09:08 Temperature 97.9 F Pulse Rate 81 Respiratory 16 16 16 Rate Blood Pressure 111/63 (mmHg) O2 Sat by Pulse 94 Oximetry 12/28/16 12/28/16 12/28/16 11:04 11:33 13:03 Temperature 98.2 F Pulse Rate 86 Respiratory 16 16 16 Rate Blood Pressure 133/79 (mmHg) O2 Sat by Pulse 93 Oximetry 12/28/16 12/28/16 12/28/16 15:03 15:42 16:21 Temperature 97.6 F Pulse Rate 73 Respiratory 16 18 Rate Blood Pressure 111/56 (mmHg) O2 Sat by Pulse 92 92 Oximetry Oxygen Devices in Use Now: None Appearance: Elderly, M, laying in bed in NAD Eyes: No Scleral Icterus Ears/Nose/Mouth/Throat: Mucous Membranes Moist Neck: NL Appearance and Movements; NL JVP Respiratory: Symmetrical Chest Expansion and Respiratory Effort, Clear to Auscultation Cardiovascular: NL Sounds; No Murmurs; No JVD, RRR Abdominal: - - Soft, non-tender, BS+, binder in place, GARRET drain removed Lymphatic: No Cervical Adenopathy Extremities: No Edema Skin: No Rash or Ulcers Neurological: Alert and Oriented x 3 Result Diagrams: 12/26/16 06:38 12/27/16 06:02 Microbiology and Other Data: Microbiology 12/25/16 06:37 Aerobic Blood Culture - Preliminary Blood Venous No Growth Day 1 Anaerobic Blood Culture - Preliminary No Growth Day 1 Assess/Plan/Problems-Billing Assessment: Incarcerated hernia with resultant SBO in a 76 yo M with hx of CAD s/p CAROLEE 2015 on ASA/Brilinta, prostate cancer, s/p partial left nephrectomy - Patient Problems (1) Incarcerated hernia Current Visit: Yes Comment: SBO. Appreciate Surgery assistance s/p laparotomy , KARMEN and hernia repair. Continueanalgesia. Antiemetic. Surgery advanced to full liquids (2) CAD (coronary artery disease) Current Visit: Yes Comment: s/p CAROLEE 07/2015. Continue ASA and Brilinta. Dr. Foss would like patient to continue DAPT. (3) Bacteriuria Current Visit: Yes Comment: Asymptomatic. No symptoms of dysuria or UTI. Hold on ABx. (4) DVT prophylaxis Current Visit: Yes Comment: SCDs Status and Disposition: Potential discharge in next 1-2 days
[2016-12-28] MEDS: PITAVASTATIN 2 MG PO SCH (20:13)
[2016-12-29] MEDS: Nicotine Patch Removal NOTE FOLLOW UP SCH (04:53)
[2016-12-29 08:02] VITALS: BP 123/63
[2016-12-29] MEDS: Aspirin Low Dose CHEW TAB* 81 MG PO SCH (08:09)
[2016-12-29] MEDS: TICAGRELOR 60 MG PO SCH (08:10)
[2016-12-29] MEDS: oxyCODONE/Acetamin 5/325 MG* TAB PO PRN ×2 (08:10→12:21)
[2016-12-29] MEDS: Nicotine PATCH 21 MG/24 HR* PATCH TRANSDERM SCH (08:11)
[2016-12-29] MEDS: Fluticasone NASAL SPRAY 50MCG* 16 gm SPRAY BTL BOTH NARES SCH (08:12)
[2016-12-29] MEDS ORDERED: Nitroglycerin TAB 0.4 MG* 0.4 MG TAB SL PRN (12:07)
--- NOTE | 2016-12-29 12:18 | DCNOTE ---
Subjective Date of Service: 12/29/16 Interval History: Mild abd pain, doesn't need any analgesic. No BM since admission. Tolerating full liquid diet well. Family History: Unchanged from Admission Social History: Unchanged from Admission Past Medical History: Unchanged from Admission Objective Active Medications: Aspirin (Aspirin Low Dose Tab*) 81 mg PO DAILY [facility] Last Admin: 12/29/16 08:09 Dose: 81 mg Diphenhydramine HCl (Benadryl Iv*) 25 mg IV Q6H PRN PRN Reason: PRURITIS Last Admin: 12/26/16 18:01 Dose: 25 mg Fluticasone Propionate (Flonase Nasal [place] 50mcg*) 2 spray BOTH NARES DAILY [facility] Last Admin: 12/29/16 08:12 Dose: 2 spray Hydromorphone HCl (Dilaudid Iv*) 1 mg IV SLOW PU Q2H PRN PRN Reason: PAIN Last Admin: 12/27/16 09:39 Dose: 1 mg Nicotine (Nicotine Patch 21 Mg/24 Hr*) 1 patch TRANSDERM DAILY [facility] Last Admin: 12/29/16 08:11 Dose: 1 patch Nitroglycerin (Nitroglycerin Tab 0.4 Mg*) 0.4 mg SL Q5M PRN PRN Reason: ANGINA Nitroglycerin (Nitroglycerin Tab 0.4 Mg*) 0.4 mg SL Q5M PRN PRN Reason: ANGINA Pto:Ticagrelor 60mg (Tabs) 1 dose PO 0900,2100 [facility] Last Admin: 12/29/16 08:10 Dose: 1 dose Ondansetron HCl (Zofran Inj*) 4 mg IV Q4H PRN PRN Reason: NAUSEA Last Admin: 12/26/16 12:15 Dose: 4 mg Oxycodone/Acetaminophen (Percocet 5/325 Tab*) 1 tab PO Q4H PRN PRN Reason: PAIN Last Admin: 12/29/16 08:10 Dose: 1 tab Pharmacy Profile Note (Nicotine Patch Removal Note*) 1 note FOLLOW UP 0600 [facility] Last Admin: 12/29/16 04:53 Dose: Not Given Pitavastatin (Livalo (Nf)) 2 mg PO 2099 [facility] Last Admin: 12/28/16 20:13 Dose: 2 mg Prochlorperazine Edisylate (Compazine Inj*) 5 mg IV Q6H PRN PRN Reason: NAUSEA/VOMITING Last Admin: 12/26/16 20:25 Dose: 5 mg Vital Signs 12/28/16 12/28/16 12/28/16 13:03 15:03 15:42 Temperature 97.6 F Pulse Rate 73 Respiratory 16 16 18 Rate Blood Pressure 111/56 (mmHg) O2 Sat by Pulse 92 Oximetry 12/28/16 12/28/16 12/28/16 16:21 19:58 20:13 Temperature 98.1 F Pulse Rate 80 Respiratory 16 16 Rate Blood Pressure 102/60 (mmHg) O2 Sat by Pulse 92 94 Oximetry 12/28/16 12/28/16 12/28/16 20:15 22:13 23:33 Temperature 97.9 F Pulse Rate 80 Respiratory 16 16 20 Rate Blood Pressure 109/61 (mmHg) O2 Sat by Pulse 92 Oximetry 12/29/16 12/29/16 12/29/16 03:28 07:28 08:10 Temperature 97.6 F 97.6 F Pulse Rate 75 85 Respiratory 18 16 16 Rate Blood Pressure 108/63 123/63 (mmHg) O2 Sat by Pulse 93 91 Oximetry 12/29/16 12/29/16 08:17 10:10 Temperature Pulse Rate Respiratory 16 16 Rate Blood Pressure (mmHg) O2 Sat by Pulse 91 Oximetry Oxygen Devices in Use Now: None Appearance: Alert, sitting on the edge of his bed. In good spirits. Looks comfortable. Ears/Nose/Mouth/Throat: Clear Oropharnyx Abdominal: NL Sounds; No Tenderness; No Distention, No Hepatosplenomegaly, - - Surgical incision with latisha L abdomen, no signs of infection, healing well. Extremities: No Edema, No Clubbing, Cyanosis, - Skin: No Rash or Ulcers, No Nodules or Sclerosis, - Neurological: Alert and Oriented x 3, NL Sensation Result Diagrams: 12/26/16 06:38 12/27/16 06:02 Microbiology and Other Data: Microbiology 12/25/16 06:37 Aerobic Blood Culture - Preliminary Blood Venous No Growth Day 1 Anaerobic Blood Culture - Preliminary No Growth Day 1 Assess/Plan/Problems-Billing Assessment: Incarcerated hernia with resultant SBO in a 76 yo M with hx of CAD s/p CAROLEE 2015 on ASA/Brilinta, prostate cancer, s/p partial left nephrectomy - Patient Problems (1) Incarcerated hernia Current Visit: Yes Status: Acute Code(s): K46.0 - UNSP ABDOMINAL HERNIA WITH OBSTRUCTION, WITHOUT GANGRENE SNOMED Code(s): 25624462 Comment: SBO, s/p laparotomy 12/25, KARMEN and hernia repair with mesh. Continue analgesia. Antiemetic. Surgery advanced to full liquids. (2) CAD (coronary artery disease) Current Visit: Yes Status: Acute Code(s): I25.10 - ATHSCL HEART DISEASE OF [place] CORONARY ARTERY W/O ANG PCTRS SNOMED Code(s): 91802491 Comment: s/p CAROLEE 07/2015. I emphasized the andrew to strictly adhere to prescribed ASA and Brilinta. (3) Tobacco abuse Current Visit: Yes Status: Acute Code(s): Z72.0 - TOBACCO USE SNOMED Code( s): 537616095 Comment: Pt advised on use of nicotine patch, rx for 14 mg patch transmitted. Status and Disposition: Discharge now. Fup Hayley Cook.
--- NOTE | 2016-12-29 12:28 | PN ---
Progress Note - Progress Note Date of Service: 12/29/16 Note: Time spent on discharge 45 minutes.
--- NOTE | 2016-12-29 19:23 | DS ---
CC: Dr. Hardy; Dr. Foss; Dr. Griffiths DISCHARGE SUMMARY: DATE OF ADMISSION: 12/24/16 DATE OF DISCHARGE: 12/29/16 HISTORY OF PRESENT ILLNESS: This 76-year-old man presented with abdominal pain. He was found to hav e small obstruction and an incarcerated ventral hernia. On 12/25/16, he underwent surgical repair o f his incarcerated hernia with using mesh. He tolerated the procedure well. His diet was advanced. He was tolerating full liquids at the time of discharge. As far as possible, his aspirin and ticag relor were continued as prescribed throughout his hospital stay. The patient had no bowel movement during the hospital stay. He was advised at home to take 3 to 4 c apsules of polyethylene glycol. He will resume all his medicines. I emphasized the need to strictly adhere to the prescribed doses of aspirin and ticagrelor. I also transmitted a prescription for ni cotine patch 14 mg daily to use for 2 weeks, then 7 mg daily. FINAL DIAGNOSES: 1. Small bowel obstruction, status post repair of ventral hernia. 2. Coronary artery disease. 3. Tobacco abuse. 4. Bacteriuria. DISCHARGE MEDICATIONS: 1. Oxycodone/acetaminophen 5/325 one every 4 hours p.r.n. 2. Nitroglycerin 0.4 mg sublingual every 5 minutes p.r.n. 3. Nicotine patch 14 mg per day, use daily for 14 days, then change to 7 mg patch for 2 weeks. 4. Fluticasone nasal spray 2 sprays both nares every day. 5. Aspirin 81 mg daily. 6. Pitavastatin 2 mg daily. 7. Ticagrelor 60 mg b.i.d. [id number]/[facility] #: [id number]
== END 2016-12-29 12:35 | disposition home or self-care (01) | DRG 337 ==
LOC: ED 19:07 → SSU 23:47
PROVIDERS: ADMIT Internal Medicine; ATTEND Internal Medicine
PROC: 0DN80ZZ Release Small Intestine, Open Approach (ICD-10-PCS; 2016-12-25)
PROC: 0WUF0JZ Supplement Abdominal Wall with Synthetic Substitute, Open Approach (ICD-10-PCS; principal; 2016-12-25 14:00)
DX: K43.0 Incisional hernia with obstruction, without gangrene (principal); R82.71 Bacteriuria; E78.5 Hyperlipidemia, unspecified; I25.10 Atherosclerotic heart disease of native coronary artery without angina pectoris; F17.210 Nicotine dependence, cigarettes, uncomplicated; J30.9 Allergic rhinitis, unspecified; Z96.653 Presence of artificial knee joint, bilateral; F41.9 Anxiety disorder, unspecified; Z79.82 Long term (current) use of aspirin; Z85.46 Personal history of malignant neoplasm of prostate; Z95.5 Presence of coronary angioplasty implant and graft; Z85.53 Personal history of malignant neoplasm of renal pelvis; Z79.899 Other long term (current) drug therapy; Z88.0 Allergy status to penicillin
CPT/HCPCS: 36415; 71010; 74177; 80048; 80053; 81003; 81015; 83605; 83690; 83880; 84484; 85025; 85027; 85610; 85730; 86140; 86850; 86900; 86901; 86922; 87040; 87077; 87086; 87186; 87205; 88302; 93005; 94640; 94760; A9270-GY; C1781; J0330; J0780; J1100; J1170; J1200; J1644; J2001; J2270; J2405; J2704; J3010; Q9967